=== PATIENT | male | born 1965 | race Hispanic/Latino ===

== ENCOUNTER 2017-08-18 10:50 | Day surgery (SDC) | payer MEDICAID ==
--- NOTE | 2017-08-17 13:20 | Anesthesia Consultation ---
Anesthesia Consult and Med Hx Date of service: 08/17/17 - Airway Anesthetic Teeth Evaluation: Good ROM Head & Neck: Adequate Mental/Hyoid Distance: Adequate Mallampati Class: Class II Intubation Access Assessment: Good - Pulmonary Exam CTA: Yes - Cardiac Exam Cardiac Exam: RRR - Pre-Operative Health Status ASA Pre-Surgery Classification: ASA3 Proposed Anesthetic Plan: General - Cardiovascular System Hx Hypertension: Yes - Central Nervous System Hx Neuromuscular Disorder: Yes (multiple sclerosis, denies steroids) - Endocrine Hx Non-Insulin Dependent Diabetes: Yes - Other Systems Hx Obesity: Yes
[~2017-08-18 10:50] MED LIST: NACL 0.9% 1000 ML 1,000 ML IV SCH; PEPCID IV NR; VERSED IV NR
[2017-08-18] MEDS ORDERED: VERSED IV NR (11:00)
[2017-08-18] MEDS ORDERED: PEPCID PO NR (11:00)
[2017-08-18] MEDS ORDERED: DILAUDID ONE (12:36)
[2017-08-18] MEDS ORDERED: DIPRIVAN 10 MG/ML IV ONE (12:36)
[2017-08-18] MEDS ORDERED: SUBLIMAZE ONE (12:36)
[2017-08-18] MEDS ORDERED: ZEMURON IV ONE (12:38)
[2017-08-18] MEDS ORDERED: ROBINUL ONE ×2 (12:39→12:57)
[2017-08-18] MEDS ORDERED: XYLOCAINE MPF 2% ONE (12:39)
[2017-08-18] MEDS ORDERED: ANCEF/STERILE WATER 2 GM/20 ML IV NR (13:00)
--- NOTE | 2017-08-18 13:26 | Anesthesia Day of Surgery ---
Anesthesia Day of Surgery - Day of Surgery Patient Examined: Yes Patient H&P Reviewed: Yes Patient is NPO: Yes Beta Blockers: Yes
[2017-08-18] MEDS ORDERED: HYDROGEN PEROXIDE ONE (13:30)
[2017-08-18] MEDS ORDERED: MARCAINE 0.5% 30 ML INFILTRATI ONE (13:31)
[2017-08-18] MEDS ORDERED: METHYLENE BLUE ONE (13:31)
[2017-08-18] MEDS ORDERED: NUPERCAINAL ONE (13:31)
[2017-08-18] MEDS ORDERED: METHYLENE BLUE IRRIGATION ONE (13:39)
[2017-08-18] MEDS ORDERED: NACL 0.9% IR ONE (13:39)
[2017-08-18] MEDS ORDERED: HYDROGEN PEROXIDE IRRIGATION ONE (13:39)
[2017-08-18] MEDS ORDERED: MARCAINE 0.5% INFILTRATI ONE (13:39)
[2017-08-18] MEDS ORDERED: TORADOL IV PRN (13:40)
[2017-08-18] MEDS ORDERED: PERCOCET 5/325 PO PRN (13:40)
[2017-08-18] MEDS ORDERED: MORPHINE IV PRN (13:40)
[2017-08-18] MEDS ORDERED: ZOFRAN ONE (14:11)
[2017-08-18] MEDS ORDERED: DECADRON ONE (14:11)
[2017-08-18] MEDS ORDERED: NACL 0.9% 1000 ML 1,000 ML ONE (14:18)
[2017-08-18] MEDS ORDERED: NEOSTIGMINE ONE (14:19)
[2017-08-18] MEDS ORDERED: NUPERCAINAL PR ONE (14:30)
--- NOTE | 2017-08-18 14:39 | Discharge Summary ---
Short Stay Discharge Plan Activity: other (january d/c in 2 hrs if stable and able to void. begin sitz bath tid in am. remove packing while in sitz bath in am. stool softners q am x 3. high fiber diet) Weight Bearing Status: Partial Weight Bearing Diet: other Wound: per your surgeon's advice Additional Instructions: aleve I po q 6-8 hrs prn for breakthrough pain surfak I po q am x 3 Follow up with: SHILPA KHALIL MD [Staff Physician] - 08/22/17
--- NOTE | 2017-08-18 15:13 | Post Anesthesia Evaluation ---
- Post Anesthesia Evaluation Patient Participated: Yes Airway Patent: Yes Stable Respiratory Function: Yes Nausea/Vomiting: No Temp > 96.8F: Yes Pain Manageable: Yes Adequeate Hydration: Yes Anesthesia Complications: No Block Receding Appropriately: Not Applicable Patient on Ventilator: No
[2017-08-18 16:58] VITALS: BP 137/75
--- NOTE | 2017-08-18 20:07 | Operative Report ---
PREOPERATIVE DIAGNOSIS: Perirectal abscess, rule out perirectal fistula. POSTOPERATIVE DIAGNOSIS: Perirectal abscess, rule out perirectal fistula. 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 Also, aerobic and anaerobic cultures taken. SURGEON: Neftaly Burgess MD ANESTHESIA: General. ESTIMATED BLOOD LOSS: Minimal. DRAINS: None. COMPLICATIONS: None. DESCRIPTION OF PROCEDURE: The patient was taken to the operating room and placed in jackknife position, prepped and draped in the usual sterile fashion. An anal exam was performed and anus dilated gently to four fingers. Anoscope was then introduced. Anoscopy performed in all 4 quadrants. There are small internal hemorrhoids noted, but no other gross pathology. A draining sinus tract was noted in the left gluteal area surrounded by chronic inflammation and induration. An Angiocath with peroxide mixed with methylene blue was gently inserted into the tract site and infiltrated. Anoscopy was then once again performed in all 4 quadrants. No bubbling was noted within the rectal canal. A probe was then used to gently fall down the fistula site. The fistula was then unroofed over the probe site. 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 The chronically inflamed tissue distal to the anal sphincter was dissected free and resected. Portions were sent for pathology. Again, aerobic and anaerobic cultures were taken. Area was irrigated copiously and dried. Checked for hemostasis and noted to be dry. The fistulotomy site was packed with 0.25- inch iodoform gauze. A 0.5% Marcaine was infiltrated over the area for postoperative pain relief. The anal sphincter once again inspected and noted to be intact. Rectal plug was then placed over the anal canal. Dibucaine ointment was also placed around it for postop pain relief. A pressure dressing applied. The patient tolerated the procedure well and left OR in stable condition. JOB# [id number] DINESH/NTS
== END 2017-08-18 17:00 | disposition home or self-care (01) ==
LOC: OR 10:50
PROVIDERS: ATTEND Surgery
DX: K61.1 Rectal abscess (principal); K64.8 Other hemorrhoids; I10 Essential (primary) hypertension; G35 Multiple sclerosis; E11.9 Type 2 diabetes mellitus without complications; E66.9 Obesity, unspecified; Z68.30 Body mass index [BMI] 30.0-30.9, adult
CPT/HCPCS: 46275; 82962; 87075; 87076; 87116; 87186; 88305; J0690; J1100; J2250; J2405; J2704; J2710; J3010; J7030; Q9968; 88304; J1170